=== PATIENT | female | born 1980 | race Caucasian/White ===

== ENCOUNTER 2018-01-04 21:26 | Emergency (ER) | payer BC, MEDICAID ==
[2018-01-04] MEDS ORDERED: Acetaminophen TAB* 325 MG PO ONE (23:25)
[2018-01-04] MEDS ORDERED: Morphine INJ* 4 MG/ML 1 ML SYRINGE (NEW SYRINGE VERSION) IV ONE (23:27)
[2018-01-04] MEDS ORDERED: Metoclopramide IV* 5 MG/ML 2 ML VIAL IV SLOW PU ONE (23:27)
[2018-01-04] MEDS ORDERED: diPHENhydraMINE PO* 25 MG PO ONE (23:27)
[2018-01-04] MEDS ORDERED: NS 0.9% 1000 ML* 1,000 ML IV ONE (23:28)
[2018-01-04] MEDS ORDERED: NS 0.9% IV ONE (23:29)
[2018-01-04 23:52] LABS: ABS Basophils 0 10^3/ul (0-0.2); ABS Eosinophils 0.1 10^3/ul (0-0.6); ABS Lymphocytes 1.2 10^3/ul (1.0-4.8); ABS Monocytes 0.4 10^3/ul (0-0.8); ABS Neutrophils 7.2 10^3/ul (1.5-7.7); ABS Nucleated RBC 0 10^3/ul; Eosinophil % 0.7 % (0-6); Hematocrit 39 % (35-47); Hemoglobin 13.3 g/dl (12.0-16.0); Lymphocyte % 13.3 % (25-47); Mean Corpuscular HGB Conc 34 g/dl (31-36); Mean Corpuscular Hemoglobin 32 pg (27-31); Mean Corpuscular Volume 94 fL (80-97); Mean Platelet Volume 7.5 um3 (7.4-10.4); Nucleated Red Blood Cells % 0; Platelet Count 243 10^3/ul (150-450); Red Blood Count 4.15 10^6/ul (4.00-5.40); Red Cell Distribution Width 12 % (10.5-15); White Blood Count 8.9 10^3/ul (3.5-10.8)
[2018-01-05 00:01] LABS: INR 0.94 (0.77-1.02)
[2018-01-05 00:09] LABS: EGFR Non-African American 75.7 (>60)
[2018-01-05] MEDS ORDERED: Iohexol 350* (CONTRAST) 500 ML MDV IV ONE (00:28)
--- NOTE | 2018-01-05 01:19 | RAD ---
EXAM: CT Angiography Head Without And With Intravenous Contrast CLINICAL HISTORY: 37 years old, female; Pain; Headache; Additional info: H/a TECHNIQUE: Axial computed tomographic angiography images of the head without and with intravenous contrast using CT angiography protocol. All CT scans at this facility use at least one of these dose optimization techniques: automated exposure control; mA and/or kV adjustment per patient size (includes targeted exams where dose is matched to clinical indication); or iterative reconstruction. MIP reconstructed images were created and reviewed. Coronal and sagittal reformatted images were created and reviewed. CONTRAST: 80 mL of Omni 350 administered intravenously. COMPARISON: No relevant prior studies available. FINDINGS: VASCULATURE: Right internal carotid artery: No acute findings. Intracranial segment is patent with no significant stenosis. No aneurysm. Right anterior cerebral artery: Unremarkable. No occlusion or significant stenosis. No aneurysm. Right middle cerebral artery: Unremarkable. No occlusion or significant stenosis. No aneurysm. Right posterior cerebral artery: Carotid dominant right posterior cerebral artery with hypoplastic right P1 segment. No occlusion or significant stenosis. No aneurysm. Right vertebral artery: Unremarkable as visualized. Left internal carotid artery: No acute findings. Intracranial segment is patent with no significant stenosis. No aneurysm. Left anterior cerebral artery: Unremarkable. No occlusion or significant stenosis. No aneurysm. Left middle cerebral artery: Unremarkable. No occlusion or significant stenosis. No aneurysm. Left posterior cerebral artery: Carotid dominant left posterior cerebral artery with hypoplastic left P1 segment. No occlusion or significant stenosis. No aneurysm. Left vertebral artery: Unremarkable as visualized. Basilar artery: Congenitally small caliber basilar artery. No occlusion or significant stenosis. No aneurysm. HEAD: Brain: No acute findings. No hemorrhage. No edema. Normal enhancement. Ventricles: Unremarkable. No ventriculomegaly. Bones/joints: No acute fracture. Soft tissues: Unremarkable. Sinuses: Mild paranasal sinus disease. Mastoid air cells: Unremarkable as visualized. No mastoid effusion. IMPRESSION: Unremarkable CTA of [place]. No acute intracranial abnormality. EXAM: CT Angiography Neck With Intravenous Contrast EXAM DATE/TIME: 01/05/2018 12:28 AM CLINICAL HISTORY: 37 years old, female; Pain; Headache; Additional info: H/a TECHNIQUE: Axial computed tomographic angiography images of the neck with intravenous contrast using CT angiography protocol. All CT scans at this facility use at least one of these dose optimization techniques: automated exposure control; mA and/or kV adjustment per patient size (includes targeted exams where dose is matched to clinical indication); or iterative reconstruction. MIP reconstructed images were created and reviewed. Coronal and sagittal reformatted images were created and reviewed. CONTRAST: 80 mL of Omni 350 administered intravenously. 80 mL of Omni 350 administered intravenously. COMPARISON: No relevant prior studies available. FINDINGS: VASCULATURE: Right common carotid artery: Unremarkable. No significant stenosis. No dissection or occlusion. Right internal carotid artery: Unremarkable. Extracranial segment is patent with no significant stenosis. No dissection or occlusion. Right external carotid artery: Unremarkable. No occlusion. Right vertebral artery: Unremarkable. No significant stenosis. No dissection or occlusion. Left common carotid artery: Unremarkable. No significant stenosis. No dissection or occlusion. Left internal carotid artery: Unremarkable. Extracranial segment is patent with no significant stenosis. No dissection or occlusion. Left external carotid artery: Unremarkable. No occlusion. Left vertebral artery: Unremarkable. No significant stenosis. No dissection or occlusion. NECK: Bones/joints: No acute fracture. No dislocation. Soft tissues: Unremarkable as visualized. No mass. CAROTID STENOSIS REFERENCE USING NASCET CRITERIA: % ICA stenosis = (1 - narrowest ICA diameter/diameter of distal cervical ICA) x 100. Mild - <50% stenosis. Moderate - 50-69% stenosis. Severe - 70-94% stenosis. Near occlusion - 95-99% stenosis. Occluded - 100% stenosis. IMPRESSION: No hemodynamically significant stenosis or dissection. To contact [facility] with a general question: [facility] - [phone] For direct physician to physician contact: Physician Hotline - [phone] [facility] ([facility] Facility ID #[id number])
[2018-01-05] MEDS ORDERED: Ibuprofen TAB* 800 MG PO ONE (02:02)
[2018-01-05] MEDS ORDERED: Magnesium Sulfate 2 GM IV* 2 GM/50 ML BAG IVPB ONE (02:03)
[2018-01-05] MEDS ORDERED: Dexamethasone IV* 4 MG/ML 1 ML (4 MG) IV SLOW PU ONE (02:03)
[2018-01-05] MEDS ORDERED: Morphine INJ* 4 MG/ML 1 ML SYRINGE (NEW SYRINGE VERSION) IV ONE (02:04)
[2018-01-05] MEDS ORDERED: fentaNYL* 50 MCG/ML 2 ML VIAL (100 MCG VIAL) IV SLOW PU ONE (02:04)
[2018-01-05] MEDS ORDERED: NS 0.9% 1000 ML* 1,000 ML IV ONE (02:05)
[2018-01-05 04:25] LABS: Urine Appearance Clear; Urine Blood Negative (Negative); Urine Color Yellow; Urine Ketones Trace (Negative); Urine Protein Negative (Negative); Urine Specific Gravity 1.043 (1.010-1.030); Urine Urobilinogen Negative (Negative)
[2018-01-05 04:54] VITALS: BP 118/65
--- NOTE | 2018-01-05 06:22 | ED ---
Headache - HPI Summary HPI Summary: Patient is a 37 y/o F w/ c/o numbness at forehead, nausea, headache, right sided facial pain, neck stiffness. Sx onset 36 hours ago. Chilsl are reported as well. 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 Patient had spinal tap, MRI, and brain CT for this w/ neurologist. FMHx of seizure. Temp is room is 101.2 F. Back pain, vomiting, weakness is denied. Patient took Tylenol today. No PMHx otherwise, had ear surgery of right ear. On triage, pain is rated 5/10, nothing is noted to aggravate/alleviate Sx. Home medications and allergies are reviewed. - History Of Current Complaint Chief Complaint: EDHeadache Stated Complaint: HEADACHE/EYE PAIN/NAUSEA Time Seen by Provider: 01/04/18 23:11 Hx Obtained From: Patient Onset/Duration: Started hours ago - 36 hours, Still Present Currently Pain Is: Current Pain Scale(0-10)= - 5/10 Timing: Constant Aggravating Factor: Nothing Allevating Factors: Nothing Associated Signs And Symptoms: Nausea, Neck Stiffness, Other (Noted In Comments ) - POSITIVE:numbness at forehead, nausea, headache, right sided facial pain, neck stiffness, fever NEGATIVE: Back pain, vomiting, weakness - Allergies/Home Medications Allergies/Adverse Reactions: Allergies Allergy/AdvReac Type Severity Reaction Status Date / Time No Known Allergies Allergy Verified 01/04/18 23:16 PMH/Surg Hx/FS Hx/Imm Hx Sensory History: Denies: Hx Legally Blind, Hx Deafness Opthamlomology History: Denies: Hx Legally Blind EENT History: Denies: Hx Deafness - Surgical History Surgery Procedure, Year, and Place: right ear surgery - Immunization History Date of Tetanus Vaccine: unk Date of Influenza Vaccine: none Infectious Disease History: No Infectious Disease History: Denies: Traveled Outside the [place] in Last 30 Days - Family History Known Family History: Positive: Seizure Disorder - Social History Alcohol Use: Occasionally Substance Use Type: Reports: None Smoking Status (MU): Never Smoked Tobacco Review of Systems Positive: Fever Positive: Nausea. Negative: Vomiting Positive: Other - POSITIVE: neck stiffness, right facial pain NEGATIVE: back pain Positive: Headache, Numbness - forehead numbness . Negative: Weakness All Other Systems Reviewed And Are Negative: Yes Physical Exam - Summary Physical Exam Summary: VITAL SIGNS: Reviewed. GENERAL: Patient is a well-developed and nourished female who is lying comfortable in the stretcher. Patient is not in any acute respiratory distress. HEAD AND FACE: No signs of trauma. No ecchymosis, hematomas or skull depressions. No sinus tenderness. EYES: PERRLA, EOMI x 2, mild right side conjugtival injection, no nystagmus. EARS: Hearing grossly intact. Ear canals and tympanic membranes are within normal limits. MOUTH: Oropharynx within normal limits. NECK: Supple, trachea is midline, no adenopathy, no JVD, no carotid bruit, no c- spine tenderness, neck with full ROM. CHEST: Symmetric, no tenderness at palpation LUNGS: Clear to auscultation bilaterally. No wheezing or crackles. CVS: Regular rate and rhythm, S1 and S2 present, no murmurs or gallops appreciated. ABDOMEN: Soft, non-tender. No signs of distention. No rebound no guarding, and no masses palpated. Bowel sounds are normal. EXTREMITIES: FROM in all major joints, no edema, no cyanosis or clubbing. NEURO: Alert and oriented x 3. No acute neurological deficits. Speech is normal and follows commands. SKIN: Dry and warm Triage Information Reviewed: Yes Vital Signs On Initial Exam: Initial Vitals Temp Pulse Resp BP Pulse Ox 99.7 F 94 20 139/72 98 01/04/18 21:35 01/04/18 21:35 01/04/18 21:35 01/04/18 21:35 01/04/18 21:35 Vital Signs Reviewed: Yes Diagnostics - Vital Signs Vital Signs Temp Pulse Resp BP Pulse Ox 01/05/18 05:00 99.1 F 96 16 118/65 95 01/05/18 04:45 90 118/65 96 01/05/18 04:15 85 112/63 95 01/05/18 04:10 86 97 01/05/18 03:45 99 117/62 97 01/05/18 03:15 95 108/58 95 01/05/18 03:00 91 96 01/05/18 02:45 92 116/57 95 01/05/18 02:18 18 01/05/18 02:15 95 108/61 96 01/05/18 02:03 100 94 01/05/18 01:45 103 113/58 96 01/05/18 01:15 100 121/57 96 01/05/18 01:00 98 96 01/05/18 00:45 93 113/56 96 01/05/18 00:15 91 120/61 96 01/05/18 00:00 98 98 01/04/18 23:52 16 01/04/18 23:45 100 126/89 97 01/04/18 23:37 99 98 01/04/18 23:15 99 112/76 99 01/04/18 23:14 96 97 01/04/18 21:35 99.7 F 94 20 139/72 98 - Laboratory Lab Results: Lab Results 01/04/18 01/04/18 01/04/18 Range/Units 23:42 23:42 23:43 WBC 8.9 (3.5-10.8) 10^3/ul RBC 4.15 (4.00-5.40) 10^6/ul Hgb 13.3 (12.0-16.0) g/dl Hct 39 (35-47) % MCV 94 (80-97) fL MCH 32 H (27-31) pg MCHC 34 (31-36) g/dl RDW 12 (10.5-15) % Plt Count 243 (150-450) 10^3/ul MPV 7.5 (7.4-10.4) um3 Neut % (Auto) 80.7 (38-83) % Lymph % (Auto) 13.3 L (25-47) % Taylor % (Auto) 4.8 (0-7) % Eos % (Auto) 0.7 (0-6) % Baso % (Auto) 0.5 (0-2) % Absolute Neuts (auto) 7.2 (1.5-7.7) 10^3/ul Absolute Lymphs (auto) 1.2 (1.0-4.8) 10^3/ul Absolute Monos (auto) 0.4 (0-0.8) 10^3/ul Absolute Eos (auto) 0.1 (0-0.6) 10^3/ul Absolute Basos (auto) 0 (0-0.2) 10^3/ul Absolute Nucleated RBC 0 10^3/ul Nucleated RBC % 0 INR (Anticoag Therapy) 0.94 (0.77-1.02) APTT 33.0 (26.0-36.3) seconds Sodium 138 (135-145) mmol/L Potassium 3.6 (3.5-5.0) mmol/L Chloride 102 (101-111) mmol/L Carbon Dioxide 29 (22-32) mmol/L Anion Gap 7 (2-11) mmol/L BUN 16 (6-24) mg/dL Creatinine 0.85 (0.51-0.95) mg/dL Est GFR ( Amer) 91.6 (>60) Est GFR (Non-Af Amer) 75.7 (>60) BUN/Creatinine Ratio 18.8 (8-20) Glucose 96 (70-100) mg/dL Lactic Acid (0.5-2.0) mmol/L Calcium 9.5 (8.6-10.3) mg/dL Total Bilirubin 0.30 (0.2-1.0) mg/dL AST 17 (13-39) U/L ALT 14 (7-52) U/L Alkaline Phosphatase 45 (34-104) U/L Total Creatine Kinase 111 (10-223) U/L C-Reactive Protein < 1.00 (<8.01) mg/L Total Protein 7.0 (6.4-8.9) g/dL Albumin 4.6 (3.2-5.2) g/dL Globulin 2.4 (2-4) g/dL Albumin/Globulin Ratio 1.9 (1-3) Urine Color Urine Appearance Urine pH (5-9) Ur Specific [place] (1.010-1.030) Urine Protein (Negative) Urine Ketones (Negative) Urine Blood (Negative) Urine Nitrate (Negative) Urine Bilirubin (Negative) Urine Urobilinogen (Negative) Ur Leukocyte Esterase (Negative) Urine Glucose (Negative) Influenza A (Rapid) (Negative) Influenza B (Rapid) (Negative) 01/04/18 01/05/18 01/05/18 Range/Units 23:43 02:52 04:12 WBC (3.5-10.8) 10^3/ul RBC (4.00-5.40) 10^6/ul Hgb (12.0-16.0) g/dl Hct (35-47) % MCV (80-97) fL MCH (27-31) pg MCHC (31-36) g/dl RDW (10.5-15) % Plt Count (150-450) 10^3/ul MPV (7.4-10.4) um3 Neut % (Auto) (38-83) % Lymph % (Auto) (25-47) % Taylor % (Auto) (0-7) % Eos % (Auto) (0-6) % Baso % (Auto) (0-2) % Absolute Neuts (auto) (1.5-7.7) 10^3/ul Absolute Lymphs (auto) (1.0-4.8) 10^3/ul Absolute Monos (auto) (0-0.8) 10^3/ul Absolute Eos (auto) (0-0.6) 10^3/ul Absolute Basos (auto) (0-0.2) 10^3/ul Absolute Nucleated RBC 10^3/ul Nucleated RBC % INR (Anticoag Therapy) (0.77-1.02) APTT (26.0-36.3) seconds Sodium (135-145) mmol/L Potassium (3.5-5.0) mmol/L Chloride (101-111) mmol/L Carbon Dioxide (22-32) mmol/L Anion Gap (2-11) mmol/L BUN (6-24) mg/dL Creatinine (0.51-0.95) mg/dL Est GFR ( Amer) (>60) Est GFR (Non-Af Amer) (>60) BUN/Creatinine Ratio (8-20) Glucose (70-100) mg/dL Lactic Acid 0.6 (0.5-2.0) mmol/L Calcium (8.6-10.3) mg/dL Total Bilirubin (0.2-1.0) mg/dL AST (13-39) U/L ALT (7-52) U/L Alkaline Phosphatase (34-104) U/L Total Creatine Kinase (10-223) U/L C-Reactive Protein (<8.01) mg/L Total Protein (6.4-8.9) g/dL Albumin (3.2-5.2) g/dL Globulin (2-4) g/dL Albumin/Globulin Ratio (1-3) Urine Color Yellow Urine Appearance Clear Urine pH 5.0 (5-9) Ur Specific [place] 1.043 H (1.010-1.030) Urine Protein Negative (Negative) Urine Ketones Trace A (Negative) Urine Blood Negative (Negative) Urine Nitrate Negative (Negative) Urine Bilirubin Negative (Negative) Urine Urobilinogen Negative (Negative) Ur Leukocyte Esterase Negative (Negative) Urine Glucose Negative (Negative) Influenza A (Rapid) Negative (Negative) Influenza B (Rapid) Negative (Negative) Result Diagrams: 01/04/18 23:42 01/04/18 23:43 Lab Statement: Any lab studies that have been ordered have been reviewed, and results considered in the medical decision making process. - Radiology CXR Xray Interpretation: No Acute Changes Radiology Interpretation Completed By: ED Physician - CXR: no acute process, pending official report - CT CTA HEAD CT Interpretation: No Acute Changes CT Interpretation Completed By: Radiologist - CTA Head IMPRESSIONS: Unremarkable CTA of the [place], no acute intracranial abnormality. This report was reviewed by ed physician. Re-Evaluation - Re-Evaluation First Eval Re-Evaluation Time: 04:40 Comment: Results of labs and tests were discussed, patient will be discharge to home, patient agreeable. Headache Course/Dx - Course Course Of Treatment: Patient is a 37 y/o F w/ c/o numbness at forehead, nausea, headache, right sided facial pain, neck stiffness. Sx onset 36 hours ago. Chilsl are reported as well. 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 Patient had spinal tap, MRI, and brain CT for this w/ neurologist. FMHx of seizure. Temp is room is 101.2 F. Back pain, vomiting, weakness is denied. Patient is a 37 y/o F w/ c/o numbness at forehead, nausea, headache, right sided facial pain, neck stiffness. Sx onset 36 hours ago. Chilsl are reported as well. 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 Patient had spinal tap, MRI, and brain CT for this w/ neurologist. FMHx of seizure. Temp is room is 101.2 F. Back pain, vomiting, weakness is denied. During ED course, patient received fluids, morphine 4 mg IV ONCE, reglan 10 mg IV SLOW PUSH, magnesium sulfate 2 gm in 50 mls @ 50 mls/hr IVPB ONCE, motrin 800 mg PO ONCE, fentanyl 100 mcg IV SLOW PUSH ONCE, decadron 10 mg IV SLOW PUSH ONCE, Tylenol 975 mg PO ONCE. UA was showed trace ketones. Influenza A, B were negative. Labs were normal. CTA Head IMPRESSIONS: Unremarkable CTA of the [place], no acute intracranial abnormality. CXR: no acute process. Results of labs and tests were discussed, patient will be discharge to home, patient agreeable. Dx of headache and fever. - Diagnoses Provider Diagnoses: Fever, Headache Discharge - Sign-Out/Discharge Documenting (check all that apply): Patient Departure - discharge - Discharge Plan Condition: Stable Disposition: HOME Prescriptions: Ibuprofen TAB* [Motrin TAB* 600 MG] 600 mg PO Q6H PRN #30 tab PRN Reason: Fever/Headache Patient Education Materials: Fever in Adults (ED), General Headache (ED) Referrals: [facility] [Outside] - 2 Days Additional Instructions: RETURN TO THE EMERGENCY DEPARTMENT FOR CHANGING OR WORSENING SYMPTOMS. FOLLOW UP WITH PRIMARY CARE PHYSICIAN IN 1-2 DAYS. - Attestation Statements Document Initiated by Scribe: Yes Documenting Scribe: Stoney Jones Provider For Whom Scribe is Documenting (Include Credential): Jatinder Parekh MD Scribe Attestation: Stoney Wagner , scribed for Jatinder Parekh MD on 01/05/18 at 0631.
--- NOTE | 2018-01-05 07:58 | RAD ---
HISTORY: fever COMPARISONS: None VIEWS: 1: frontal AP view of the chest at 4:02 AM FINDINGS: LINES AND TUBES: None. CARDIOMEDIASTINAL SILHOUETTE: The cardiomediastinal silhouette is normal for portable technique. PLEURA: The costophrenic angles are sharp. No pleural abnormalities are noted. LUNG PARENCHYMA: The lungs are clear. ABDOMEN: The upper abdomen is clear. There is no subphrenic gas. BONES AND SOFT TISSUES: No bone or soft tissue abnormalities are noted. IMPRESSION: NO ACTIVE CARDIOPULMONARY DISEASE. R0
== END 2018-01-05 05:00 | disposition home or self-care (01) ==
LOC: ED 21:26
DX: R50.9 Fever, unspecified (principal); R51 Headache; R20.0 Anesthesia of skin; R11.0 Nausea; M43.6 Torticollis
CPT/HCPCS: 36415; 70496; 70498; 71045; 80053; 81003; 82550; 83605; 85025; 85610; 85730; 86140; 87040; 96361; 96365; 96375; 99284; A9270-GY; J1100; J2270; J2765; J3010; J3475; Q9967

== ENCOUNTER 2018-01-09 09:24 | Emergency (ER) | payer MEDICAID ==
[2018-01-09 09:29] VITALS: BP 125/63
--- NOTE | 2018-01-09 09:41 | ED ---
Throat Pain/Nasal Congestion - HPI Summary HPI Summary: Pt is 37 y/o F who presents to ED c/o vision changes since last night. Last night she had double vision and this morning she felt a pressure behind her eyes in addition to the double vision. Rates her pain a 3/10 and describes it as a pressure. Her right eye has been red since 5 days ago and she also notes some facial drooping yesterday night. Denies fever, chills, headache, floaters, numbness, tingling, or lightheadedness. 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 Visited [facility] 5 days ago and was discharged home. - History of Current Complaint Chief Complaint: EDEyeProblem Time Seen by Provider: 01/09/18 09:31 Hx Obtained From: Patient Onset/Duration: Lasting Days, Still Present Severity: Mild - 3/10 - Allergies/Home Medications Allergies/Adverse Reactions: Allergies Allergy/AdvReac Type Severity Reaction Status Date / Time No Known Allergies Allergy Verified 01/09/18 09:41 Home Medications: Home Medications Acyclovir 800 mg PO Q12HR 01/09/18 [History Confirmed 01/09/18] Tramadol HCl 50 mg PO TID PRN 01/09/18 [History Confirmed 01/09/18] PMH/Surg Hx/FS Hx/Imm Hx Previously Healthy: Yes Sensory History: Denies: Hx Contacts or Glasses, Hx Legally Blind, Hx Deafness Opthamlomology History: Denies: Hx Legally Blind EENT History: Denies: Hx Deafness - Surgical History Surgery Procedure, Year, and Place: right ear surgery - Immunization History Date of Tetanus Vaccine: unk Date of Influenza Vaccine: none Infectious Disease History: No Infectious Disease History: Denies: Traveled Outside the [place] in Last 30 Days - Family History Known Family History: Positive: Seizure Disorder - Social History Alcohol Use: Occasionally Substance Use Type: Reports: None Smoking Status (MU): Never Smoked Tobacco Review of Systems Constitutional: Negative Positive: Photophobia, Blurred Vision, Erythema ENT: Negative Respiratory: Negative Gastrointestinal: Negative Positive: Rash All Other Systems Reviewed And Are Negative: Yes Physical Exam - Summary Physical Exam Summary: Appearance: Well appearing, no pain distress Skin: warm, dry, reflects adequate perfusion Head/face: normal Eyes: EOMI, SIRISHA ENT: mucous membranes moist Neck: supple, non-tender Respiratory: CTA, breath sounds present Cardiovascular: RRR, pulses symmetrical Abdomen: non-tender, soft Bowel Sounds: present Musculoskeletal: normal, strength/ROM intact Neuro: normal, sensory motor intact, A&Ox3 Triage Information Reviewed: Yes Vital Signs On Initial Exam: Initial Vitals Temp Pulse Resp BP Pulse Ox 97.5 F 69 16 125/63 99 01/09/18 09:27 01/09/18 09:27 01/09/18 09:27 01/09/18 09:27 01/09/18 09:27 Vital Signs Reviewed: Yes Appearance: Positive: Well-Appearing, No Pain Distress, Well-Nourished Skin: Positive: Warm, Dry, Other - vesicular lesions R forehead Eyes: Positive: Other: - R conj inflammation/injection. Photophobia R. No fluroscene uptake. No dendrites or lesions seen. No FB ENT: Positive: Hearing grossly normal, Other - R ear without vesicular lesions. Scarring from prior surgery. No erythema Neck: Positive: Supple, Nontender Respiratory/Lung Sounds: Positive: Clear to Auscultation Cardiovascular: Positive: RRR Musculoskeletal: Positive: Strength/ROM Intact Neurological: Positive: Alert, Oriented to Person Place, Time, CN Intact II-III AVPU Assessment: Alert Diagnostics - Vital Signs Vital Signs Temp Pulse Resp BP Pulse Ox 01/09/18 09:27 97.5 F 69 16 125/63 99 - Laboratory Lab Statement: Any lab studies that have been ordered have been reviewed, and results considered in the medical decision making process. EENT Course/Dx - Course Course Of Treatment: Pt with zoster and R eye involvement. No fluro uptake but with photophobia possibly indicating iritis. D/W Ophtho who will see now in the office. Pain improved with topical tetracaine. Cyclogel placed in eye. F/U with them now. On oral prednisone and acyclovir. - Diagnoses Provider Diagnoses: Herpes zoster ophthalmicus of right eye, Iritis of right eye - Provider Notifications Discussed Care Of Patient With: Georgie Bennett - will see now in office Discharge - Sign-Out/Discharge Documenting (check all that apply): Patient Departure - Discharge Plan Condition: Improved Disposition: HOME Patient Education Materials: Shingles (ED), Iritis (ED) Referrals: Georgie Bennett MD [Medical Doctor] - Additional Instructions: Go right over now to be seen by the eye doctor. - Billing Disposition and Condition Condition: IMPROVED Disposition: Home - Attestation Statements Document Initiated by Ja: Yes Documenting Scribe: Jv Oliver Provider For Whom Davyibe is Documenting (Include Credential): Dr Martin Scribe Attestation: IJv, scribed for Dr Martin on 01/09/18 at 1012. Scribe Documentation Reviewed: Yes Provider Attestation: The documentation as recorded by the davyibe, Jv Oliver accurately reflects the service I personally performed and the decisions made by , Dr Martin
[2018-01-09] MEDS ORDERED: Fluorescein Sodium TOPICAL* 1 MG TEST STRIP OPHTHALMIC ONE (09:44)
[2018-01-09] MEDS ORDERED: Fluorescein Sodium TOPICAL* 1 MG TEST STRIP ONE (09:46)
[2018-01-09] MEDS ORDERED: Tetracaine 0.5% OPTH.SOL 4 ML* 1 DROP BTL ONE (09:46)
[2018-01-09] MEDS ORDERED: Cyclopentolate 1% OPTH.SOL* 2 ML BTL RIGHT EYE ONE (09:58)
[2018-01-09] MEDS ORDERED: Tetracaine 0.5% OPTH.SOL 15ML* BTL RIGHT EYE SCH (10:00)
== END 2018-01-09 10:11 | disposition home or self-care (01) ==
LOC: ED 09:24
DX: B02.30 Zoster ocular disease, unspecified (principal); H20.9 Unspecified iridocyclitis
CPT/HCPCS: 99282; A9270-GY